=== PATIENT | male | born 1980 | race Caucasian/White ===

== ENCOUNTER 2017-06-30 10:46 | Outpatient (CLI) | payer OTHER ==
--- NOTE | 2017-06-30 12:55 | ULT ---
COMPLETE ABDOMEN ULTRASOUND: INDICATION: Generalized abdominal pain with constipation and fever. FINDINGS: No focal hepatic lesion is evident. Visualized aorta and IVC and pancreas are unremarkable. A small amount of gallbladder sludge is present. No sonographic Briseno's sign is reported. Common b ile duct measured 2.9 mm. Visualized pancreas is unremarkable. The right kidney measures 10.6 x 5.2 x 4.6 cm. The left kidney measures 11.0 x 4.9 x 5.2 cm. The spleen is enlarged measuring 14.4 x 8.3 x 6.1 cm. IMPRESSION: 1. Splenomegaly. 2. Mild gallbladder sludge without sonographic evidence of acute cholecystitis. POS: [facility]
== END 2017-06-30 10:47 | disposition home or self-care (01) ==
LOC: SCSULT 10:46
PROVIDERS: ATTEND Family Medicine
DX: R10.10 Upper abdominal pain, unspecified (principal); R16.1 Splenomegaly, not elsewhere classified; K82.8 Other specified diseases of gallbladder
CPT/HCPCS: 76700

== ENCOUNTER 2020-01-24 12:14 | Outpatient (CLI) | payer OTHER ==
--- NOTE | 2020-01-24 12:48 | RAD ---
4 views of the lumbar spine: 01/24/2020 COMPARISON: 10/28/2013 HISTORY: Back pain FINDINGS: The upright neutral lateral radiograph demonstrates 1.4 cm of anterolisthesis at L5-S1. Thi s anterolisthesis measures approximately 1.7 cm with flexion and 1.3 cm with extension. Bilateral L5 pars defects are present. IMPRESSION: Bilateral L5 pars defects with anterolisthesis at L5-S1 measuring up to 1.7 cm with flexi on.
== END 2020-01-24 12:15 | disposition home or self-care (01) ==
LOC: BICRAD 12:14
PROVIDERS: ATTEND Nurse Practitioner Family
DX: M43.16 Spondylolisthesis, lumbar region (principal); M43.17 Spondylolisthesis, lumbosacral region
CPT/HCPCS: 72110